=== PATIENT | male | born 1970 | race African-American/Black ===

== ENCOUNTER 2019-11-23 16:35 | Emergency (ER) | payer MEDICAID ==
[~2019-11-23] VITALS: Ht 177.8 cm; Wt 90.0 kg
[2019-11-23] MEDS ORDERED: LORAZEPAM 2MG/ML CPJ IM STA (16:51)
[2019-11-23] MEDS ORDERED: SODIUM CHLORIDE 0.9% 1,000 ML IV ONE (16:51)
[2019-11-23] MEDS ORDERED: OLANZAPINE 10 MG/VIAL IM ONE (17:00)
[2019-11-23 17:36] LABS: EOSINOPHILS % 0.5 % (0.0-5.0); HEMATOCRIT. 48.7 % (42.0-52.0); HEMOGLOBIN. 16.5 g/dL (14.0-18.0); LYMPHOCYTES % 43.5 % (20.0-50.0); MEAN CORPUSCULAR HEMOGLOBIN 29.4 pg (28.0-32.0); MEAN CORPUSCULAR VOLUME 86.7 fL (80.0-94.0); MEAN PLATELET VOLUME 8.6 fl (7.4-10.4); MONOCYTES % 9.3 % (2.0-8.0); NEUTROPHILS % 45.7 % (40.0-76.0); PLATELET 333 x1000/uL (130-400); RED BLOOD CELL COUNT 5.62 mill/uL (4.7-6.1); RED CELL DISTRIBUTION WIDTH 15.1 % (11.6-14.6)
[2019-11-23 17:42] LABS: CLARITY URINE CLEAR (CLEAR); COLOR URINE YELLOW (YELLOW); KETONES URINE NEGATIVE (NEGATIVE); LEUKOCYTE ESTERASE URINE NEGATIVE (NEGATIVE); NITRITE URINE NEGATIVE (NEGATIVE); OCCULT BLOOD URINE NEGATIVE (NEGATIVE); PH URINE 5.5 (4.5-8.0); PROTEIN URINE NEGATIVE (NEGATIVE); SPECIFIC GRAVITY URINE 1.004 (1.005-1.030); UROBILINOGEN URINE 0.2 E.U./dL (0.2-1.0)
[2019-11-23 17:44] LABS: CHLORIDE 112 mEq/L (98-107)
[2019-11-23 17:52] LABS: CREATINE KINASE 496 IU/L (39-308)
[2019-11-23 17:55] LABS: *AMPHETAMINES SCREEN URINE NEGATIVE (NEGATIVE)
[2019-11-23 17:56] LABS: *BARBITURATES SCREEN URINE NEGATIVE (NEGATIVE); *BENZODIAZEPINES SCREEN URINE NEGATIVE (NEGATIVE); *COCAINE SCREEN URINE NEGATIVE (NEGATIVE); CANNABINOID URINE SCREEN PRESUMTIVE POSITIVE (NEGATIVE); METHADONE URINE SCREEN NEGATIVE (NEGATIVE); OPIATES URINE SCREEN NEGATIVE (NEGATIVE); PHENCYCLIDINE URINE SCREEN NEGATIVE (NEGATIVE)
[2019-11-23 18:17] LABS: ETHANOL BLOOD 310 mg/dL
[2019-11-23] MEDS ORDERED: LORAZEPAM 2MG/ML CPJ IV ONE ×2 (19:15→21:15)
[2019-11-24] MEDS ORDERED: HALOPERIDOL LACTATE 5MG/ML VIAL IM ONE (01:15)
[2019-11-24 08:52] VITALS: BP 125/78
== END 2019-11-24 09:00 | disposition home or self-care (01) ==
LOC: ER 16:35
DX: R45.1 Restlessness and agitation (principal); R41.82 Altered mental status, unspecified; I25.2 Old myocardial infarction; F10.129 Alcohol abuse with intoxication, unspecified; Z91.411 Personal history of adult psychological abuse; Y90.8 Blood alcohol level of 240 mg/100 ml or more
CPT/HCPCS: 36415; 80053; 80305; 80320; 81003; 82140; 82550; 84443; 84484; 85025; 93005; 96372; 96374; 96376; 99285; J1630; J2060; J3490; J7030; G0480